=== PATIENT | female | born 2000 | race African-American/Black ===

== ENCOUNTER 2022-09-16 02:54 | Emergency (ER) | payer OTHER ==
[~2022-09-16] VITALS: Ht 162.6 cm; Wt 49.0 kg
[2022-09-16 03:05] VITALS: BP 116/76
[2022-09-16] MEDS ORDERED: CARI250T MT (21:56)
[2022-09-16] MEDS ORDERED: IBUP-1521 MT (21:56)
[2022-09-16] MEDS ORDERED: CYCL25PO15 MT (21:59)
== END 2022-09-16 05:38 | disposition left against medical advice (07) ==
LOC: ER 02:54
DX: Z53.21 Procedure and treatment not carried out due to patient leaving prior to being seen by health care provider (principal)
CPT/HCPCS: 72070; 72100; 81025; 99281

== ENCOUNTER 2022-09-16 19:46 | Emergency (ER) | payer OTHER ==
[~2022-09-16] VITALS: Ht 162.6 cm; Wt 49.0 kg
[2022-09-16 21:30] VITALS: BP 112/57
[2022-09-16] MEDS: CYCLOBENZAPRINE 10MG TABLET PO SCH ×2 (21:30→21:41)
[2022-09-16] MEDS ORDERED: ACETAMINOPHEN 325MG TABLET PO ONE (21:30)
[2022-09-16] MEDS ORDERED: KETOROLAC 60MG/2ML VIAL IM ONE (21:30)
[2022-09-16] MEDS ORDERED: IBUP-1521 MT (21:56)
[2022-09-16] MEDS ORDERED: CARI250T MT (21:56)
[2022-09-16] MEDS ORDERED: CYCL25PO15 MT (21:59)
== END 2022-09-16 22:32 | disposition home or self-care (01) ==
LOC: ER 19:46
DX: M54.50 Low back pain, unspecified (principal); J45.909 Unspecified asthma, uncomplicated
CPT/HCPCS: 81025; 96372; 99283; J1885; Z7610